=== PATIENT | female | born 1985 | race Caucasian/White ===

== ENCOUNTER 2021-03-19 10:02 | Emergency (ER) | payer OTHER ==
[~2021-03-19] VITALS: Ht 182.9 cm; Wt 92.5 kg
[2021-03-19] MEDS ORDERED: SYNTHROID137 MC1 PO (10:18)
[2021-03-19] MEDS ORDERED: LISINOPRIL5 MG PO (10:18)
[2021-03-19 10:58] VITALS: BP 134/80
== END 2021-03-19 10:59 | disposition home or self-care (01) ==
LOC: M.ERS 10:02
DX: U07.1 COVID-19 (principal); I10 Essential (primary) hypertension; Z79.899 Other long term (current) drug therapy; Z88.8 Allergy status to other drugs, medicaments and biological substances

== ENCOUNTER 2021-07-12 10:53 | Emergency (ER) | payer OTHER ==
[~2021-07-12] VITALS: Ht 185.4 cm; Wt 90.7 kg
[~2021-07-12 10:53] MED LIST: LISINOPRIL5 MG PO; SYNTHROID137 MC1 PO
[2021-07-12] MEDS ORDERED: BIRTH CONTROL (11:18)
[2021-07-12 11:31] LABS: URINE BILIRUBIN NEGATIVE (Negative); URINE BLOOD 2+ (Negative); URINE CLARITY CLEAR; URINE COLOR YELLOW; URINE GLUCOSE-RANDOM NEGATIVE (Negative); URINE KETONES NEGATIVE (Negative); URINE NITRITE-REFLEX NEGATIVE (Negative); URINE PROTEIN NEGATIVE (Negative); URINE UROBILINOGEN 0.2 E.U./dl (0.2-1.0)
[2021-07-12 11:32] LABS: URINE LEUKOCYTES-REFLEX 3+ (Negative)
[2021-07-12 11:39] LABS: SQUAMOUS 0-3 Few /LPF (0-3)
[2021-07-12 11:40] LABS: CASTS None Seen /LPF (None Seen); CRYSTALS None Seen /LPF (None Seen); MUCUS None Seen strn/LPF (None Seen); URINE RBC 0-2 Rare /HPF (0-2)
[2021-07-12] MEDS ORDERED: PYRIDIUM200 MG PO (11:57)
[2021-07-12] MEDS ORDERED: BACTRIM DS TAB1 EAC1 PO (11:57)
[2021-07-12 12:20] VITALS: BP 157/90
== END 2021-07-12 12:21 | disposition home or self-care (01) ==
LOC: M.ERS 10:53
PROVIDERS: Nurse Practitioner Family
DX: N39.0 Urinary tract infection, site not specified (principal); I10 Essential (primary) hypertension; Z79.899 Other long term (current) drug therapy; Z88.8 Allergy status to other drugs, medicaments and biological substances